=== PATIENT | male | born 1995 | race Caucasian/White ===

== ENCOUNTER 2017-01-23 13:38 | Emergency (ER) | payer OTHER ==
[2017-01-23 13:46] VITALS: TEMP 98.2; O2SAT 97
[2017-01-23] MEDS ORDERED: NS 500 ML IV ONE (14:14)
[2017-01-23] MEDS ORDERED: KETOROLAC 30 MG/1 ML SDV IVP ONE (14:14)
--- NOTE | 2017-01-23 14:17 | EDPHY ---
H & P Time Seen by Provider: 01/23/17 14:04 HPI/ROS: CHIEF COMPLAINT: Left-sided pain HISTORY OF PRESENT ILLNESS: Patient is a 21-year-old male who presents emergency department with 3-4 days of left upper quadrant left-sided pain. His pain was initially waxing waning. It seemed to worsen throughout the day. It occasionally radiates to his left flank. He has had no dysuria or frequency. No fevers or chills. No nausea or vomiting. Patient is moving was lifting heavy objects yesterday. This caused him to have discomfort in his lower back but this pain feels different. He was seen at urgent care. There he was told he had a negative urine. He was sent to the emergency department for further evaluation. REVIEW OF SYSTEMS: My complete review of systems is negative except as mentioned in the HPI. Past Medical/Surgical History: Past medical history: Negative Social history: The patient is a new student at [employer]. He does not smoke. Smoking Status: Never smoked Physical Exam: Vitals noted GENERAL: Well-appearing, in no acute distress, alert. HEENT: Eyes normal to inspection, normal pharynx, no signs of dehydration. NECK: No thyromegaly, no lymphadenopathy, supple. RESPIRATORY: Clear to auscultation bilaterally, no rales, rhonchi or wheezing. CVS: Regular rate and rhythm, no rubs, murmurs, or gallops. ABDOMEN: Soft, nontender, nondistended, no organomegaly. Benign. BACK: Normal to inspection, no CVA tenderness. SKIN: Normal color, no rash, warm, dry. No pallor. EXTREMITIES: No pedal edema, no joint swelling. NEURO/PSYCH: Alert and oriented, normal mood and affect, normal motor sensory exam. Constitutional: Initial Vital Signs Temperature (C) 36.8 C 01/23/17 13:43 Heart Rate 68 01/23/17 13:43 Respiratory Rate 18 01/23/17 13:43 Blood Pressure 154/81 H 01/23/17 13:43 O2 Sat (%) 97 01/23/17 13:43 O2 Delivery Mode Room Air Allergies/Adverse Reactions: No Known Allergies Allergy (Unverified 01/23/17 13:42) Home Medications: Medication Instructions Recorded NK [No Known Home Meds] 01/23/17 Medical Decision Making - Diagnostics Imaging Results: Imaging Impressions Chest X-Ray 01/23/17 14:15 Impression: Normal chest. ED Course/Re-evaluation: In the emergency department I discussed possible etiologies with the patient. I answered all his questions. An IV was placed. Laboratory studies urine and chest x-ray were ordered. Patient was given Toradol 30 mg IV. Review patient's laboratory studies. His white blood cell count was mildly elevated 11. The rest of his CBC was unremarkable. His chemistry showed a normal creatinine of 1.0. Sodium potassium were normal. His carbon dioxide is mildly low. AST and ALT were normal. Alk phos unremarkable. His lipase was normal at 81. UA negative. Chest x-ray: Please refer the dictated report by Dr. Corey Mack. I reviewed the images with Dr. Mack. On recheck the patient was doing well. He had no new complaints. I discussed the findings thus far with the patient and his family. I answered all her questions. He will return with worsening symptoms. I do not feel he needs CT imaging at this time. I have considered kidney stone he has no red blood cells in his urine. Differential Diagnosis: My differential includes but is not limited to renal colic, kidney stone, urinary tract infection, pyelonephritis, splenomegaly, mono, small-bowel obstruction, perforation had diverticulitis, pneumonia, bronchitis, PE - Data Points Laboratory Results: Laboratory Results 01/23/17 14:30 01/23/17 14:30 01/23/17 01/23/17 01/23/17 14:30 14:30 14:30 WBC 11.23 10^3/uL H 10^3/uL (3.80-9.50) RBC 5.43 10^6/uL 10^6/uL (4.40-6.38) Hgb 16.7 g/dL g/dL (13.7-17.5) Hct 48.9 % % (40.0-51.0) MCV 90.1 fL fL (81.5-99.8) MCH 30.8 pg pg (27.9-34.1) MCHC 34.2 g/dL g/dL (32.4-36.7) RDW 12.2 % % (11.5-15.2) Plt Count 328 10^3/uL 10^3/uL (150-400) MPV 9.0 fL fL (8.7-11.7) Neut % (Auto) 65.0 % % (39.3-74.2) Lymph % (Auto) 27.6 % % (15.0-45.0) Wells % (Auto) 5.9 % % (4.5-13.0) Eos % (Auto) 0.7 % % (0.6-7.6) Baso % (Auto) 0.4 % % (0.3-1.7) Nucleat RBC Rel Count 0.0 % % (0.0-0.2) Absolute Neuts (auto) 7.30 10^3/uL H 10^3/uL (1.70-6.50) Absolute Lymphs (auto) 3.10 10^3/uL H 10^3/uL (1.00-3.00) Absolute Monos (auto) 0.66 10^3/uL 10^3/uL (0.30-0.80) Absolute Eos (auto) 0.08 10^3/uL 10^3/uL (0.03-0.40) Absolute Basos (auto) 0.05 10^3/uL 10^3/uL (0.02-0.10) Absolute Nucleated RBC 0.00 10^3/uL 10^3/uL (0-0.01) Immature Gran % 0.4 % % (0.0-1.1) Immature Gran # 0.04 10^3/uL 10^3/uL (0.00-0.10) D-Dimer < 0.27 ug/mLFEU ug/mLFEU (0.00-0.50) Sodium 141 mEq/L mEq/L (134-144) Potassium 4.2 mEq/L mEq/L (3.5-5.2) Chloride 103 mEq/L mEq/L (97-110) Carbon Dioxide 20 mEq/l L mEq/l (22-31) Anion Gap 18 mEq/L H mEq/L (8-16) BUN 18 mg/dL mg/dL (7-23) Creatinine 1.0 mg/dL mg/dL (0.7-1.3) Estimated GFR > 60 Glucose 90 mg/dL mg/dL (70-100) Calcium 10.8 mg/dL H mg/dL (8.5-10.4) Phosphorus Pending Total Bilirubin 0.8 mg/dL mg/dL (0.1-1.4) Conjugated Bilirubin 0.4 mg/dL mg/dL (0.0-0.5) Unconjugated Bilirubin 0.4 mg/dL mg/dL (0.0-1.1) AST 30 IU/L IU/L (17-59) ALT 30 IU/L IU/L (21-72) Alkaline Phosphatase 68 IU/L IU/L (38-126) Total Protein 9.5 g/dL H g/dL (6.3-8.2) Albumin 5.6 g/dL H g/dL (3.5-5.0) Lipase 81 IU/L IU/L (23-300) Urine Color Urine Appearance Urine pH Ur Specific Lipan Urine Protein Urine Ketones Urine Blood Urine Nitrate Urine Bilirubin Urine Urobilinogen Ur Leukocyte Esterase Urine Glucose 01/23/17 13:50 WBC RBC Hgb Hct MCV MCH MCHC RDW Plt Count MPV Neut % (Auto) Lymph % (Auto) Wells % (Auto) Eos % (Auto) Baso % (Auto) Nucleat RBC Rel Count Absolute Neuts (auto) Absolute Lymphs (auto) Absolute Monos (auto) Absolute Eos (auto) Absolute Basos (auto) Absolute Nucleated RBC Immature Gran % Immature Gran # D-Dimer Sodium Potassium Chloride Carbon Dioxide Anion Gap BUN Creatinine Estimated GFR Glucose Calcium Phosphorus Total Bilirubin Conjugated Bilirubin Unconjugated Bilirubin AST ALT Alkaline Phosphatase Total Protein Albumin Lipase Urine Color YELLOW Urine Appearance CLEAR Urine pH 5.0 (5.0-7.5) Ur Specific Lipan 1.025 (1.002-1.030) Urine Protein NEGATIVE (NEGATIVE) Urine Ketones TRACE H (NEGATIVE) Urine Blood NEGATIVE (NEGATIVE) Urine Nitrate NEGATIVE (NEGATIVE) Urine Bilirubin NEGATIVE (NEGATIVE) Urine Urobilinogen NEGATIVE EU EU (0.2-1.0) Ur Leukocyte Esterase NEGATIVE (NEGATIVE) Urine Glucose NEGATIVE (NEGATIVE) Medications Given: Discontinued Medications Sodium Chloride (Ns) 500 mls @ 0 mls/hr IV EDNOW ONE; Wide Open PRN Reason: Protocol Stop: 01/23/17 14:15 Last Admin: 01/23/17 14:25 Dose: 500 mls Ketorolac Tromethamine (Toradol) 30 mg IVP EDNOW ONE Stop: 01/23/17 14:15 Last Admin: 01/23/17 14:24 Dose: 30 mg Departure - Departure Disposition: Home, Routine, Self-Care Clinical Impression: Abdominal pain Qualifiers: Abdominal location: left upper quadrant Qualified Code(s): R10.12 - Left upper quadrant pain Condition: Good Instructions: Abdominal Pain (ED) Additional Instructions: Return with increasing pain, fever, vomiting, or any other concerns. Referrals: KATELYNN Navarro,. [Clinic] - 2-3 days, call for appt.
[2017-01-23 14:22] LABS: COLOR YELLOW; LEUKOCYTE ESTERASE,URINE NEGATIVE (NEGATIVE); NITRITE,URINE NEGATIVE (NEGATIVE)
[2017-01-23 14:44] LABS: % IMMATURE GRANULYOCYTES 0.4 % (0.0-1.1); ABSOLUTE IMMATURE GRANULOCYTES 0.04 10^3/uL (0.00-0.10); ADD DIFF? NO; ADD MORPH? NO; ADD SCAN? NO; ATYPICAL LYMPHOCYTE FLAG 20 (0-99); FRAGMENT RBC FLAG 0 (0-99); HEMATOCRIT 48.9 % (40.0-51.0); HEMOGLOBIN 16.7 g/dL (13.7-17.5); LEFT SHIFT FLG 0 (0-99); LIPEMIA HEMOLYSIS FLAG 90 (0-99); MEAN CELL HEMOGLOBIN 30.8 pg (27.9-34.1); MEAN CELL HEMOGLOBIN CONCENTR. 34.2 g/dL (32.4-36.7); MEAN CELL VOLUME 90.1 fL (81.5-99.8); PLATELET CLUMPS FLAG 0 (0-99); PLATELET COUNT 328 10^3/uL (150-400); RED BLOOD CELL COUNT 5.43 10^6/uL (4.40-6.38); RED CELL DISTRIBUTION WIDTH 12.2 % (11.5-15.2)
[2017-01-23 15:07] LABS: ALANINE AMINOTRANSFERASE 30 IU/L (21-72); ALBUMIN 5.6 g/dL (3.5-5.0); ALKALINE PHOSPHATASE 68 IU/L (38-126); ANION GAP 18 mEq/L (8-16); ASPARTATE AMINOTRANSFERASE 30 IU/L (17-59); BILIRUBIN,TOTAL 0.8 mg/dL (0.1-1.4); BILIRUBIN-CONJUGATED 0.4 mg/dL (0.0-0.5); BILIRUBIN-UNCONJUGATED 0.4 mg/dL (0.0-1.1); CALCIUM 10.8 mg/dL (8.5-10.4); CARBON DIOXIDE 20 mEq/l (22-31); CHLORIDE 103 mEq/L (97-110); GLOMERULAR FILTRATION RATE > 60; GLUCOSE 90 mg/dL (70-100); POTASSIUM 4.2 mEq/L (3.5-5.2); SODIUM 141 mEq/L (134-144); TOTAL PROTEIN 9.5 g/dL (6.3-8.2)
[2017-01-23 15:46] VITALS: BP 141/87; PULSE 63; RESP 12
== END 2017-01-23 15:48 | disposition home or self-care (01) ==
DX: R10.12 Left upper quadrant pain (principal); E86.9 Volume depletion, unspecified
CPT/HCPCS: 96374; J1885

== ENCOUNTER 2017-01-28 11:04 | Emergency (ER) | payer OTHER ==
--- NOTE | 2017-01-28 11:32 | CPEKG ---
Heart Rate: 66 RR Interval: 909 P-R Interval: 172 QRSD Interval: 94 QT Interval: 396 QTC Interval: 415 P Potter: 50 QRS Potter: 69 T Wave Potter: 40 EKG Severity - OTHERWISE NORMAL ECG - EKG Impression: SINUS ARRHYTHMIA, RATE 53-79 Electronically Signed By: Christian Garcia 28-Jan-2017 13:00:42
[2017-01-28] MEDS ORDERED: IBUPROFEN 600 MG TAB PO ONE (11:42)
--- NOTE | 2017-01-28 11:51 | EDPHY ---
H & P Smoking Status: Never smoked Time Seen by Provider: 01/28/17 11:10 HPI/ROS: CHIEF COMPLAINT: Chest pain HISTORY OF PRESENT ILLNESS: 21-year-old male presents to the emergency department with left-sided chest pain. Pain began 2 or 3 days ago. He was seen in the emergency department on Monday, 6 days ago with pain in his left side, left upper abdomen. He had a negative workup including chest x-ray, D- dimer and chemistries. The patient denies any known trauma or injury. He denies feeling short of breath. Denies pleuritic chest pain. The patient has not had any follow-up with airplane cover maker or primary care provider. The pain in his left side, left upper abdomen is maybe slightly improved although has not resolved. No fevers or chills. No headache. No reported trauma. He does smoke marijuana daily. He denies any other illicit drug use. REVIEW OF SYSTEMS: Constitutional: No fever, no chills. Eyes: No double or blurry vision. ENT: No sore throat. Respiratory: No cough, no shortness of breath. Cardiac: chest pain. Gastrointestinal: No abdominal pain, vomiting or diarrhea. Genitourinary: No dysuria. Musculoskeletal: No neck or back pain. Skin: No rashes. Neurological: No headache. (Kristin Rivera) Past Medical/Surgical History: Anxiety, marijuana use Pertinent family medical history: Paternal aunt at age 14 from postop complications from heart condition (Kristin Rivera) Social History: [employer] student (Kristin Rivera) Physical Exam: General Appearance: Alert, no distress. 98% on room air. No apparent distress. Eyes: Pupils equal and round. Extraocular motions are all intact. ENT: Mouth: Mucous membranes moist. Respiratory: No wheezing, rhonchi, or rales, lungs are clear to auscultation. Unable to reproduce pain with palpation in the left anterior aspect of his chest. No palpable crepitus or other bony abnormality. Cardiovascular: Regular rate and rhythm. Gastrointestinal: Abdomen is soft and nontender, no masses, no rebound or guarding, bowel sounds normal. Neurological: Alert and oriented x 3, cranial nerves II through XII grossly intact Skin: Warm and dry, no rashes. Musculoskeletal: Nontender to palpate along the cervical, thoracic or lumbar spine. Neck is supple. Extremities: Full range of motion and no peripheral edema. Psychiatric: Patient is oriented X 3, there is no agitation. (Kristin Rivera) Constitutional: Initial Vital Signs Temperature (C) 36.4 C 01/28/17 11:06 Heart Rate 84 01/28/17 11:06 Respiratory Rate 16 01/28/17 11:06 Blood Pressure 139/83 H 01/28/17 11:06 O2 Sat (%) 98 01/28/17 11:06 O2 Delivery Mode Room Air Allergies/Adverse Reactions: No Known Allergies Allergy (Unverified 01/23/17 13:42) Home Medications: Medication Instructions Recorded IBUPROFEN 01/28/17 Medical Decision Making ED Course/Re-evaluation: 21-year-old male presents to the emergency department with left-sided chest pain. The patient had a negative workup 6 days ago in the emergency department. I did discuss the case with Dr. Christian Garcia, secondary supervising physician, who did not directly evaluate the patient but agrees with treatment and plan. It is unclear what the patient's paternal aunt had. The patient does not think that he has any family history of coronary artery disease at an earlier age however he does not know about his dad sister who at the age of 14. Echocardiogram has been ordered. Will repeat his D-dimer and a troponin. Patient she has" 3 or 4" out of 10 pain in his chest. Unable to reproduce with palpation. He was given ibuprofen. We did discuss the possibility of this being related to anxiety although he understands that this is more of a diagnosis of exclusion and he is agreeing with the above tests. Echocardiogram was obtained which was within normal limits. Patient was given Cardiology referral. (Kristin Rivera) I did not see this patient while he was in the emergency department. However his care was discussed with the PA while the patient was in the department. I agree with treatment plan and management (Christian Garcia) Differential Diagnosis: Chest pain including but not limited to myocardial ischemia, pulmonary embolus, chest wall pain, pleural inflammation and pulmonary infectious causes. (Kristin Rivera) - Data Points Medications Given: Discontinued Medications Ibuprofen (Motrin) 600 mg PO EDNOW ONE Stop: 01/28/17 11:43 Last Admin: 01/28/17 11:44 Dose: 600 mg Departure - Departure Disposition: Home, Routine, Self-Care Clinical Impression: Chest pain Condition: Good Instructions: Chest Pain (ED) Additional Instructions: You should follow up with airplane cover maker as discussed. Activity as tolerated. Return to the emergency department if you have any change in symptoms or if you feel worse in any way. Referrals: Joe Yousif MD [Medical Doctor] - 2-3 days, call for appt. (Phlebotomy Lab Assistant on- call)
[2017-01-28 12:46] VITALS: O2SAT 95
--- NOTE | 2017-01-28 13:49 | ECHO ---
[id number] + + [address] : : [place] [address] : : [phone] + + Adult Echocardiographic Report + -------+ :Name: JAI MULLIGAN HStudy Date: 01/28/2017 12:38 PM : : Hospital Admission Number: [id number] Locati on: ER5: :: 1995 Gender: Male Height: 67 in : :Age: 21 yrs Race: WH Weight: 155 lb : :Reason For Study: Eval LV Fx : : BSA: 1.8 meter s2 : :History: Chest Pain : + -------+ MMode/2D Measurements \T\ Calculations IVSd: 0.77 cm LVIDd: 4.7 cm FS: 38.1 % Ao root diam: 2.6 cm LVPWd: 0.88 cm LVIDs: 2.9 cm EDV(Teich): 102.4 ml ACS: 1.9 cm ESV(Teich): 32.5 ml EF(Teich): 68.3 % Normal Measurement Values: + + :LVIDd (3.5-5.7cm) IVSd (0.6-1.1cm) LVPWd (0.6-1.1cm) Aortic Root (2.0-3.7cm)Left Atrium (1.5-4.0cm): :LV Vol(d) (76-115ml) LV Vol(s) (29-48ml) Ejec Fraction (50-65%)PV Patrick (0.6- 1.2m/s) TV Patrick (0.4-1.0m/s) : :MV E Patrick (0.8-1.0m/s)MV A Patrick (0.3-1.0m/s)LVOT Patrick (0.7-1.2m/s) Asc Ao Patrick ( 0.9-1.8m/s) : + + Doppler Measurements \T\ Calculations MV E max patrick: Ao V2 max: LV V1 max: PA V2 max: 81.9 cm/sec 121.0 cm/sec 94.8 cm/sec 133.0 cm/sec MV A max patrick: Ao max P.9 mmHgLV V1 max PG: PA max P.1 mmHg 28.6 cm/sec 3.6 mmHg MV E/A: 2.9 Left Ventricle The left ventricle is normal in size and function. There is normal left ventricular wall thickness. The left ventricular ejection fraction is normal. Ejection Fraction = 68%. The left ventricular wall motion is normal. Right Ventricle The right ventricle is normal in size and function. Atria The left atrial size is normal. Right atrial size is normal. Mitral Valve The mitral valve is normal in structure and function. There is no evidence of mitral valve prolapse. There is no mitral valve stenosis. There is no mitral regurgitation noted. Tricuspid Valve The tricuspid valve is normal in structure and function. No tricuspid regurgitation. Aortic Valve The aortic valve is normal in structure and function. There is no aortic stenosis. There is no aortic insufficiency. Pulmonic Valve The pulmonic valve is normal in structure and function. There is no pulmonic valvular regurgitation. Great Vessels The aortic root is normal size. Pericardium/Pleural There is no pericardial effusion. Conclusion A complete two-dimensional transthoracic echocardiogram was performed (2D, M-mode, Doppler and color flow Doppler). The left ventricle is normal in size and function. The left ventricular ejection fraction is normal. Ejection Fraction = 68%. The left ventricular wall motion is normal. The right ventricle is normal in size and function. Normal valvular structure and function. There is no pericardial effusion. Final Reading Physician: Jeb Lantigua signed on 01/28/2017 01:48 PM Ordering Physician: GOPI CARBAJAL Performed By: Kenroy Patrick, LCUASCS
[2017-01-28 15:07] VITALS: BP 123/67; PULSE 65; RESP 14; TEMP 98.1
== END 2017-01-28 15:17 | disposition home or self-care (01) ==
DX: R07.9 Chest pain, unspecified (principal)